=== PATIENT | male | born 2000 | race Caucasian/White ===

== ENCOUNTER 2022-06-17 08:56 | Emergency (ER) | payer MEDICAID ==
[~2022-06-17] VITALS: Ht 172.7 cm; Wt 115.0 kg
[2022-06-17 09:35] VITALS: BP 134/53
[2022-06-17 12:07] LABS: CHLORIDE 104 mEq/L (98-107); HEMATOCRIT. 38.6 % (42.0-52.0); HEMOGLOBIN. 13.2 g/dL (14.0-18.0); MEAN CORPUSCULAR HEMOGLOBIN 29.6 pg (28.0-32.0); MEAN CORPUSCULAR VOLUME 86.2 fL (80.0-94.0); MEAN PLATELET VOLUME 7.5 fl (7.4-10.4); PLATELET 279 x1000/uL (130-400); RED BLOOD CELL COUNT 4.47 mill/uL (4.7-6.1); RED CELL DISTRIBUTION WIDTH 14.4 % (11.6-14.6)
[2022-06-17] MEDS ORDERED: DICYCLOMINE 10 MG/5 ML ORAL SYR PO STA (12:43)
[2022-06-17] MEDS ORDERED: VISCOUS LIDOCAINE 2% 15 ML UDC PO STA (12:43)
[2022-06-17] MEDS ORDERED: MAGNESIUM/ALUMINUM HYDROXIDE/SIMETHICONE 30ML UDC PO STA (12:43)
[2022-06-17] MEDS ORDERED: ONDANSETRON 4MG ODT PO STA (12:43)
[2022-06-17] MEDS ORDERED: OMEPRAZOLE 20MG CAPSULE EXTENDED RELEASE PO ONE (12:45)
[2022-06-17] MEDS ORDERED: OMEP20CA14 MT (12:45)
[2022-06-17] MEDS ORDERED: ONDA4TAB50 MT (12:46)
[2022-06-17 13:10] LABS: PLATELET ESTIMATE NORMAL
[2022-06-17 14:05] LABS: CLARITY URINE TURBID (CLEAR); COLOR URINE YELLOW (YELLOW); KETONES URINE NEGATIVE (NEGATIVE); LEUKOCYTE ESTERASE URINE NEGATIVE (NEGATIVE); NITRITE URINE NEGATIVE (NEGATIVE); OCCULT BLOOD URINE NEGATIVE (NEGATIVE); PROTEIN URINE TRACE (NEGATIVE); SPECIFIC GRAVITY URINE 1.031 (1.005-1.030); UROBILINOGEN URINE 0.2 E.U./dL (0.2-1.0)
== END 2022-06-17 13:14 | disposition home or self-care (01) ==
LOC: ER 08:56
DX: K52.9 Noninfective gastroenteritis and colitis, unspecified (principal); K29.60 Other gastritis without bleeding
CPT/HCPCS: 36415; 80053; 81003; 85025; 99284; Q0162